=== PATIENT | female | born 1995 | race Caucasian/White ===

== ENCOUNTER 2024-05-19 17:25 | Inpatient (IN) | payer BC ==
[~2024-05-19] VITALS: Ht 162.6 cm; Wt 94.8 kg
[2024-05-19 17:26] VITALS: BP_SYST 123; PULSE 77; RESP 16; TEMP 97.8; O2SAT 98
[2024-05-19] MEDS: MAG-AL HYDROX/SIMETH 30 ML UDC PO ONE (18:02)
[2024-05-19 18:52] LABS: ALBUMIN 3.7 g/dL (3.4-4.8); BILIRUBIN,DIRECT 1.2 mg/dL (0.0-0.3); CALCIUM 9.1 mg/dL (8.4-11.0); CREATININE 1.27 mg/dL (0.55-1.30); POTASSIUM 4.1 mmol/L (3.5-5.1); TOTAL BILIRUBIN 1.9 mg/dL (0.0-1.0); TOTAL PROTEIN, SERUM 7.1 g/dL (6.4-8.3)
[2024-05-19 18:53] LABS: BILIRUBIN,URINE 1+ (NEGATIVE); CLARITY/URINE CLEAR (CLEAR); COLOR,URINE YELLOW (YELLOW); GLUCOSE,URINE NEGATIVE (NEGATIVE); KETONES,URINE NEGATIVE (NEGATIVE); LEUKOCYTE ESTERASE ,URINE 2+ (NEGATIVE); NITRITE, URINE NEGATIVE (NEGATIVE); PROTEIN URINE NEGATIVE (NEGATIVE)
[2024-05-19 18:54] LABS: BASOPHILS % (AUTO) 0.3 % (0.0-2.0); EOSINOPHILS % (AUTO) 0.1 % (0.0-4.0); HEMATOCRIT 39.3 % (36-48); HEMOGLOBIN 13.3 g/dL (12.0-16.0); LYMPHOCYTES % (AUTO) 10.3 % (20.5-51.5); MEAN CORPUSCULAR HEMOGLOBIN 31 pg (27-31); MEAN CORPUSCULAR HGB CONC 34 % (32-36); MEAN CORPUSCULAR VOLUME 91 fL (79.0-98.0); MONOCYTES # (AUTO) 0.7 K/uL (0.0-1.0); MONOCYTES % (AUTO) 6.7 % (1.7-9.3); NEUTROPHILS # (AUTO) 8.1 K/uL (1.8-7.7); NEUTROPHILS % (AUTO) 82.6 % (40.0-70.0); PLATELET COUNT (AUTO) 264 K/uL (130-430); RED CELL DISTRIBUTION WIDTH 13.7 % (9.0-15.0); WHITE BLOOD COUNT (AUTO) 9.7 K/uL (4.8-10.8)
[2024-05-19 18:57] LABS: BLOOD, URINE TRACE (NEGATIVE)
[2024-05-19 19:05] LABS: BACTERIA,URINE FEW /HPF (None Seen); MUCUS,URINE None Seen /LPF (None Seen); RBC,URINE NONE SEEN /HPF (0-3)
[2024-05-19] MEDS: ONDANSETRON HCL 4 MG/2 ML VIAL IVP ONE (23:20)
[2024-05-19] MEDS: MORPHINE 2 MG/ML INJ. SYRINGE IVP ONE (23:30)
[2024-05-19] MEDS ORDERED: PIPERACILLIN/TAZOBACTAM 3.375 GM/VIAL (ZOSYN) IV ONE ×2 (23:47)
[2024-05-19] MEDS: PIPERACILLIN/TAZO 3.375 GM in NS 50 ML IV ONE (23:50)
[2024-05-20] MEDS: PIPERACILLIN/TAZO 3.375 GM in NS 50 ML IV ONE (00:19)
[2024-05-20] MEDS ORDERED: ONDANSETRON HCL 4 MG/2 ML VIAL IVP PRN ×2 (02:00→11:15)
[2024-05-20] MEDS ORDERED: LEVO75TA7 PO (02:02)
[2024-05-20] MEDS ORDERED: FERR325T30 PO (02:02)
[2024-05-20] MEDS ORDERED: CHOL200075 PO (02:02)
[2024-05-20] MEDS ORDERED: MORPHINE 4 MG INJ. 4 MG/ML VIAL IVP PRN (02:15)
[2024-05-20] MEDS: D5/0.45 NS 1,000 ML IV ONE (02:16)
[2024-05-20 03:56] VITALS: BP_SYST 121; PULSE 45; RESP 20; TEMP 97.5; O2SAT 100
[2024-05-20 07:55] VITALS: O2SAT 100
[2024-05-20 08:08] VITALS: BP_SYST 119; PULSE 54; RESP 16; TEMP 97.5; O2SAT 100
[2024-05-20] MEDS: MORPHINE 2 MG/ML INJ. SYRINGE IVP PRN (08:12)
[2024-05-20] MEDS ORDERED: ACETAMINOPHEN 325 MG TABLET PO PRN ×2 (11:15→11:45)
[2024-05-20] MEDS ORDERED: NALOXONE HCL 0.4 MG/ML AMP (NARCAN) IVP PRN ×2 (11:15)
[2024-05-20] MEDS ORDERED: LORazepam 2 MG/ML VIAL IVP PRN (11:15)
[2024-05-20] MEDS: CHOLECALCIFEROL (VITAMIN D3) 2,000 UNIT TABLET PO ONE (12:05)
[2024-05-20] MEDS: LEVOTHYROXINE SODIUM 0.075 MG TABLET PO ONE (12:05)
[2024-05-20 12:22] VITALS: BP_SYST 133; PULSE 61; RESP 18; TEMP 97.6; O2SAT 99
[2024-05-20] MEDS: HYDROcodone/ACETAMIN 5-325 MG TAB (NORCO/ VICODIN) PO PRN (13:40)
[2024-05-20] MEDS: cefTRIAXone 1 GM IVPB PREMIX 50 ML IV SCH (14:19)
[2024-05-20 16:30] VITALS: BP_SYST 128; PULSE 97; RESP 18; TEMP 97.5; O2SAT 98
[2024-05-20 16:49] LABS: ALBUMIN 3.3 g/dL (3.4-4.8); BILIRUBIN,DIRECT 0.5 mg/dL (0.0-0.3); TOTAL BILIRUBIN 1.1 mg/dL (0.0-1.0); TOTAL PROTEIN, SERUM 6.8 g/dL (6.4-8.3)
[2024-05-20] MEDS: HYDROcodone/ACETAMIN 10-325 MG TAB PO PRN (19:54)
[2024-05-20 20:00] VITALS: BP_SYST 114; PULSE 45; RESP 18; TEMP 97; O2SAT 96
[2024-05-20] MEDS: FERROUS SULFATE 325 MG TABLET.DR PO SCH (20:18)
[2024-05-21] VITALS: BP_SYST 127; PULSE 47; RESP 18; TEMP 97.2; O2SAT 98
[2024-05-21 06:32] LABS: BASOPHILS % (AUTO) 0.5 % (0.0-2.0); EOSINOPHILS # (AUTO) 0.1 K/uL (0.0-0.4); EOSINOPHILS % (AUTO) 1.2 % (0.0-4.0); HEMATOCRIT 37.8 % (36-48); HEMOGLOBIN 12.6 g/dL (12.0-16.0); LYMPHOCYTES # (AUTO) 2.8 K/uL (1.0-5.5); LYMPHOCYTES % (AUTO) 34.4 % (20.5-51.5); MEAN CORPUSCULAR HEMOGLOBIN 31 pg (27-31); MEAN CORPUSCULAR HGB CONC 33 % (32-36); MEAN CORPUSCULAR VOLUME 93 fL (79.0-98.0); MONOCYTES # (AUTO) 0.5 K/uL (0.0-1.0); MONOCYTES % (AUTO) 6.6 % (1.7-9.3); NEUTROPHILS # (AUTO) 4.6 K/uL (1.8-7.7); NEUTROPHILS % (AUTO) 57.3 % (40.0-70.0); PLATELET COUNT (AUTO) 219 K/uL (130-430); RED BLOOD CELL COUNT(AUTO) 4.09 MIL/uL (4.2-6.2); RED CELL DISTRIBUTION WIDTH 13.4 % (9.0-15.0)
[2024-05-21 07:00] LABS: BILIRUBIN,DIRECT 0.4 mg/dL (0.0-0.3); CALCIUM 8.7 mg/dL (8.4-11.0); CREATININE 1.24 mg/dL (0.55-1.30); POTASSIUM 3.7 mmol/L (3.5-5.1); TOTAL BILIRUBIN 1.1 mg/dL (0.0-1.0); TOTAL PROTEIN, SERUM 6.3 g/dL (6.4-8.3)
[2024-05-21 08:00] VITALS: BP_SYST 121; PULSE 68; RESP 16; TEMP 97.8; O2SAT 97
[2024-05-21] MEDS: LEVOTHYROXINE SODIUM 0.075 MG TABLET PO SCH (09:00)
[2024-05-21] MEDS: CHOLECALCIFEROL (VITAMIN D3) 2,000 UNIT TABLET PO SCH (09:01)
[2024-05-21 11:17] VITALS: BP_SYST 133; PULSE 55; RESP 16; TEMP 98.5; O2SAT 99
[2024-05-21 16:05] VITALS: BP_SYST 136; PULSE 58; RESP 16; TEMP 98.5; O2SAT 100
[2024-05-22 00:21] VITALS: BP_SYST 103; PULSE 52; RESP 16; TEMP 97.8; O2SAT 94
[2024-05-22 05:57] LABS: BASOPHILS % (AUTO) 0.5 % (0.0-2.0); EOSINOPHILS # (AUTO) 0.1 K/uL (0.0-0.4); EOSINOPHILS % (AUTO) 1.4 % (0.0-4.0); HEMATOCRIT 38.7 % (36-48); HEMOGLOBIN 12.6 g/dL (12.0-16.0); LYMPHOCYTES # (AUTO) 2.9 K/uL (1.0-5.5); LYMPHOCYTES % (AUTO) 39.2 % (20.5-51.5); MEAN CORPUSCULAR HEMOGLOBIN 30 pg (27-31); MEAN CORPUSCULAR HGB CONC 33 % (32-36); MEAN CORPUSCULAR VOLUME 93 fL (79.0-98.0); MONOCYTES # (AUTO) 0.5 K/uL (0.0-1.0); MONOCYTES % (AUTO) 6.3 % (1.7-9.3); NEUTROPHILS # (AUTO) 3.9 K/uL (1.8-7.7); NEUTROPHILS % (AUTO) 52.6 % (40.0-70.0); PLATELET COUNT (AUTO) 238 K/uL (130-430); RED BLOOD CELL COUNT(AUTO) 4.16 MIL/uL (4.2-6.2); RED CELL DISTRIBUTION WIDTH 13.6 % (9.0-15.0); WHITE BLOOD COUNT (AUTO) 7.4 K/uL (4.8-10.8)
[2024-05-22 06:06] LABS: ERYTHROCYTE SEDIMENTATION RATE 15 MM/HR (0-20)
[2024-05-22 06:20] LABS: CALCIUM 8.9 mg/dL (8.4-11.0); CREATININE 1.31 mg/dL (0.55-1.30); PHOSPHORUS 4.3 mg/dL (2.7-4.5); POTASSIUM 3.8 mmol/L (3.5-5.1); TOTAL BILIRUBIN 0.6 mg/dL (0.0-1.0); TOTAL PROTEIN, SERUM 6.5 g/dL (6.4-8.3)
[2024-05-22 08:15] VITALS: O2SAT 99
[2024-05-22 11:06] VITALS: BP_SYST 123; PULSE 56; RESP 14; TEMP 97.9; O2SAT 98
[2024-05-22 16:13] VITALS: BP_SYST 126; PULSE 57; RESP 14; TEMP 97.6; O2SAT 98
[2024-05-22 20:00] VITALS: BP_SYST 118; PULSE 56; RESP 20; TEMP 98.1; O2SAT 97
[2024-05-23 04:13] VITALS: RESP 20; TEMP 98; O2SAT 97
[2024-05-23 06:20] LABS: BASOPHILS % (AUTO) 0.4 % (0.0-2.0); EOSINOPHILS # (AUTO) 0.1 K/uL (0.0-0.4); EOSINOPHILS % (AUTO) 0.8 % (0.0-4.0); HEMATOCRIT 39.4 % (36-48); HEMOGLOBIN 13.2 g/dL (12.0-16.0); LYMPHOCYTES # (AUTO) 2.3 K/uL (1.0-5.5); LYMPHOCYTES % (AUTO) 31.5 % (20.5-51.5); MEAN CORPUSCULAR HEMOGLOBIN 31 pg (27-31); MEAN CORPUSCULAR HGB CONC 33 % (32-36); MEAN CORPUSCULAR VOLUME 92 fL (79.0-98.0); MONOCYTES # (AUTO) 0.5 K/uL (0.0-1.0); MONOCYTES % (AUTO) 6.4 % (1.7-9.3); NEUTROPHILS # (AUTO) 4.5 K/uL (1.8-7.7); NEUTROPHILS % (AUTO) 60.9 % (40.0-70.0); PLATELET COUNT (AUTO) 240 K/uL (130-430); RED BLOOD CELL COUNT(AUTO) 4.29 MIL/uL (4.2-6.2); RED CELL DISTRIBUTION WIDTH 13.6 % (9.0-15.0); WHITE BLOOD COUNT (AUTO) 7.4 K/uL (4.8-10.8)
[2024-05-23 06:35] LABS: ALBUMIN 3.1 g/dL (3.4-4.8); CALCIUM 9.2 mg/dL (8.4-11.0); CREATININE 1.15 mg/dL (0.55-1.30); POTASSIUM 4.2 mmol/L (3.5-5.1); TOTAL BILIRUBIN 0.5 mg/dL (0.0-1.0); TOTAL PROTEIN, SERUM 6.5 g/dL (6.4-8.3)
[2024-05-23] MEDS: PANTOPRAZOLE SODIUM 40 MG TAB PO ONE (07:15)
[2024-05-23 08:05] VITALS: BP_SYST 120; PULSE 62; RESP 19; TEMP 97.6; O2SAT 99
[2024-05-23 08:06] VITALS: O2SAT 99
[2024-05-23 09:12] LABS: PROTHROMBIN TIME 10.7 SECS (9.5-12.5)
[2024-05-23] MEDS ORDERED: fentaNYL CITRATE/PF 100 MCG/2 ML AMP ONE (09:25)
[2024-05-23] MEDS ORDERED: MIDAZOLAM HCL 2 MG/2 ML VIAL (VERSED) ONE (09:26)
[2024-05-23] MEDS ORDERED: ceFAZolin SODIUM 1 GM VIAL ONE (09:29)
[2024-05-23] MEDS ORDERED: BUPIVACAINE LIPOSOME/PF 266 MG/20 ML VIAL INFIL ONE (09:35)
[2024-05-23] MEDS ORDERED: ACETAMINOPHEN I.V. 1000 MG 100 ML IV ONE (11:07)
[2024-05-23] MEDS ORDERED: NALOXONE HCL 0.4 MG/ML AMP (NARCAN) IVP PRN ×4 (12:00)
[2024-05-23] MEDS ORDERED: hydrALAZINE HCL 20 MG/ML VIAL IV PRN (12:00)
[2024-05-23] MEDS ORDERED: ONDANSETRON HCL 4 MG/2 ML VIAL IVP PRN (12:00)
[2024-05-23] MEDS ORDERED: HYDROmorphone 1 MG/ML INJ. CARTRIDGE IVP PRN ×2 (12:00)
[2024-05-23] MEDS: HYDROmorphone 1 MG/ML INJ. CARTRIDGE IVP PRN (12:10)
[2024-05-23] MEDS ORDERED: HYDROmorphone 1 MG/ML INJ. CARTRIDGE ONE (12:11)
[2024-05-23 16:11] VITALS: BP_SYST 121; PULSE 66; RESP 16; TEMP 98.1; O2SAT 98
[2024-05-23 17:14] VITALS: BP_SYST 114; PULSE 77; RESP 19; TEMP 98.6; O2SAT 99
== END 2024-05-23 17:47 | disposition home or self-care (01) | DRG 769 ==
LOC: SED 17:25 → SMU 05-20 01:58 → STU 05-20 03:37 → SMU 05-21 12:28
PROVIDERS: ADMIT Preventive Medicine Preventive Medicine/Occupational Environmental Medicine; ATTEND Preventive Medicine Preventive Medicine/Occupational Environmental Medicine
PROC: 0FT44ZZ Resection of Gallbladder, Percutaneous Endoscopic Approach (ICD-10-PCS; principal; 2024-05-23 09:48)
DX: O99.63 Diseases of the digestive system complicating the puerperium (principal); K80.00 Calculus of gallbladder with acute cholecystitis without obstruction; E80.6 Other disorders of bilirubin metabolism; E03.9 Hypothyroidism, unspecified; O99.285 Endocrine, nutritional and metabolic diseases complicating the puerperium; E88.09 Other disorders of plasma-protein metabolism, not elsewhere classified; Z87.442 Personal history of urinary calculi
CPT/HCPCS: 36415; 71046; 74181; 76700; 80048; 80053; 80076; 81000; 81001; 81015; 83690; 83735; 84100; 84484; 85025; 85610; 85651; 85730; 86886; 86900; 86901; 87040; 87081; 87086; 88304; 93005; 93306; 96375; 99285; C9290; G0378; J0131; J0690; J0696; J1100; J1170; J1885; J2270; J2405; J2543; J2704; J3010; J3465; J3490; J7120